=== PATIENT | male | born 1960 | race African-American/Black ===

== ENCOUNTER 2022-10-19 13:38 | Observation (INO) | payer MEDICARE, MEDICAID, SELFPAY ==
[2022-10-19] VITALS (14 sets, daily range): BP systolic 94–134; BP diastolic 63–94; PULSE 61–78; RESP 13–25; TEMP 36.3–36.6; O2SAT 98–100; BMI 28.1
--- NOTE | ~2022-10-19 | US_ITS ---
EXAMINATION: US renal BI DATE: 10/20/2022 11:18 INDICATION: Acute kidney injury. TECHNIQUE: Multiple ultrasound grayscale images of the kidneys were obtained. COMPARISON: None. FINDINGS: The right kidney measures 11.2 x 5.8 x 4.5 cm. The left kidney measures 10.6 x 6.4 x 4.8 cm. The kidn eys demonstrate normal parenchymal echogenicity. There is a 1.4 cm cyst in right kidney. There is no hydronephrosis. The bladder is decompressed. There is diffuse hepatic steatosis. IMPRESSION: 1. Normal kidney sizes. No hydronephrosis. 2. Diffuse hepatic steatosis. Reviewed, dictated and finalized at location A.
--- NOTE | ~2022-10-19 | CT_ITS ---
EXAMINATION: CT brain wo con DATE: 10/19/2022 14:20 INDICATION: Dizziness. Syncope. TECHNIQUE: Computed tomography (CT) of the head was performed without intravenous contrast. The mA wa s adjusted according to patient size. Iterative reconstruction technique was employed. The dose-lengt h product was 605.33 mGy-cm. COMPARISON: None FINDINGS: There is no intracranial hemorrhage, acute infarction, or abnormal intracranial mass lesion . The ventricles are normal in size. There is an old blowout fracture of medial wall of left orbit. T here is mild mucosal thickening in the paranasal sinuses. The mastoid air cells are normal. IMPRESSION: 1. Normal brain. Reviewed, dictated and finalized at location A. IMPRESSION: 1. Normal brain.
--- NOTE | ~2022-10-19 | XR_ITS ---
EXAMINATION: XR chest 1V DATE: 10/19/2022 14:25 INDICATION: Syncope. TECHNIQUE: A single frontal view of the chest was obtained. COMPARISON: None. FINDINGS: The chest demonstrates clear lungs without pneumonia, pleural effusion, or pneumothorax. Th e heart size is normal. IMPRESSION: 1. No acute cardiopulmonary disease. Reviewed, dictated and finalized at location A.
--- NOTE | ~2022-10-19 | US_ITS ---
EXAMINATION: US carotid duplex BI DATE: 10/20/2022 11:18 INDICATION: Syncope. TECHNIQUE: Grayscale, color Doppler, and pulsed Doppler images of the cervical carotid arteries were obtained. The degree of vessel stenosis is placed in one of the following categories: normal, <50%, 5 0-69%, >=70% but less than near-occlusion, near-occlusion, or total occlusion. Note that percent sten osis relative to normal distal artery lumen diameter is indirectly measured from velocity measurement s as described by Patrice, et al. Radiology 2003; 229:340-346. COMPARISON: None. FINDINGS: RIGHT: The right common carotid artery (CCA) peak systolic velocity (PSV) is 86 cm/s. The right internal car otid artery (ICA) PSV is 56 cm/s. The right ICA end-diastolic velocity (EDV) is 23 cm/s. The right IC A/CCA PSV ratio is 0.8. Grayscale and color Doppler images yield an estimate of <50% diameter reducti on from plaque in the ICA. There is antegrade flow in the right vertebral artery. LEFT: The left CCA PSV is 82 cm/s. The left ICA PSV is 60 cm/s. The left ICA EDV is 23 cm/s. The left ICA/C CA PSV ratio is 0.7. Grayscale and color Doppler images yield an estimate of <50% diameter reduction from plaque in the ICA. There is antegrade flow in the left vertebral artery. IMPRESSION: 1. <50% stenosis in the right internal carotid artery. 2. <50% stenosis in the left internal carotid artery. Reviewed, dictated and finalized at location A.
--- NOTE | 2022-10-19 13:50 | ECG_ITS ---
Measurements Intervals [place] Rate: 71 P: 60 PA: 167 QRS: 54 QRSD: 103 T: 43 QT: 363 QTc: 397 Interpretive Statements SINUS RHYTHM ST ELEVATION IN DIFFUSE LEADSCONSISTENT WITH INJURY, PERICARDITIS, OR EARLY REPOLARIZATION ABNORMAL ECG NO PREVIOUS ECG AVAILABLE FOR COMPARISON Electronically Signed On 10-19-2022 14:26:46 CDT by Bonifacio Arora D.O.
--- NOTE | 2022-10-19 14:08 | ED.GENADULT ---
HPI - General Adult General Chief complaint: Syncope Stated complaint: syncope Time Seen by Provider: 10/19/22 14:07 Source: patient Mode of arrival: ambulatory Limitations: no limitations History of Present Illness HPI narrative: 62 years old -[place] male was cutting the grass, felt dizzy, hot, could not breathe, went inside the house to relax then blacked out for unknown duration, later patient was able to relax feeling good, 20 minutes later tried to stand up then blacked out again. Brought to the emergency room by private car with his nephew. Patient reported having 3 shots of vodka which is nothing for him. Currently denying any symptoms including chest pain, shortness of breath, headache or focal neurodeficit. History of hypertension, been going through cardiac evaluation lately for unknown reason discovered while trying to do cataract left eye Related Data Allergies Allergy/AdvReac Type Severity Reaction Status Date / Time No Known Drug Allergies Allergy Unknown Verified 10/19/22 15:40 Review of Systems Review of Systems: All systems reviewed & are unremarkable except as noted in HPI and below Exam Narrative: General appearance: Well-developed, well-nourished Skin: Normal color Head: Normocephalic, nontraumatic Eyes: Clear conjunctiva ENT: Oropharynx normal, ears normal, nose normal Neck: Supple, nontender Chest and respiratory: Airway patent, no respiratory distress, no accessory muscle use Heart: Regular rate/rhythm Abdomen: Soft, nontender, no organomegaly, quiet bowel sounds Vascular: Normal peripheral pulses, normal capillary refill. Musculoskeletal: Normal range of motion, nontender back Neurologic: Alert and oriented ?3, [employer] is normal as tested, no gross motor deficit Course Reevaluation(s) Reevaluation #1: Patient feeling much better, denying any symptoms. Was notified about admission, agreed Date: 10/19/22 Time: 18:42 Vital Signs Vital signs: Vital Signs Temperature 36.3 C L 10/19/22 13:44 Pulse Rate 77 10/19/22 13:44 Respiratory Rate 18 10/19/22 13:44 Blood Pressure 119/85 10/19/22 13:44 Pulse Oximetry 100 10/19/22 13:44 Oxygen Delivery Room Air 10/19/22 13:44 Temperature 36.3 C L 10/19/22 13:44 Pulse Rate 68 10/19/22 18:28 Respiratory Rate 20 10/19/22 18:28 Blood Pressure 106/65 10/19/22 18:28 Pulse Oximetry 100 10/19/22 18:28 Oxygen Delivery Room Air 10/19/22 13:44 Medical Decision Making MDM Narrative Medical decision making narrative: Patient presents with lightheadedness and dizziness and syncope after working hard in the backyard in the hot water midday. Blood pressure on arrival to the ED was in the low level of normal, patient was asymptomatic on arrival to the ED, denies any shortness of breath or chest pain or headache. Differential diagnosis include heat exhaustion, dehydration, electrolyte imbalance, orthostatic hypotension. EKG on arrival showed diffuse ST elevation consistent with pericarditis versus early repolarization, CRP came back within normal limits negative pericarditis less likely. Patient denies any chest pain. Physical examination was unremarkable. Work-up today showed normal CBC, normal coags, elevated creatinine of 1.8, no old records for comparison, dehydration secondary to backyard work today is a possibility. Urine showed insignificant abnormality, toxicology screen showed came back positive for marijuana CT head and chest x-ray showed no acute abnormalities. Patient received 2 L of normal saline in the ED, orthostatic blood pressure showed low normal blood pressure, Patient will be admitted for IV fluid and color television console monitor. Cecile
[2022-10-19 14:12] LABS: Basophils Absolute Auto 0.1 K/mm3 (0.0-0.1); Basophils Percent Auto 0.6 % (0.2-1.2); Eosinophils Absolute Auto 0.1 K/mm3 (0-0.3); Eosinophils Percent Auto 1.3 % (0-4.4); Hemoglobin 13.2 g/dL (14.0-18.0); Immature Granulocyte Absolute 0.08 K/mm3 (0.00-0.031); Immature Granulocyte Percent A 0.9 % (0-0.5); Lymphocytes Absolute Auto 1.69 K/mm3 (0.9-3.2); Mean Corpuscular Hemoglobin 28.9 pg (26-34); Mean Corpuscular Volume 87.7 fl (80-100); Mean Platelet Volume 9.4 fl (7.4-10.4); Monocytes Absolute Auto 0.9 K/mm3 (0.1-0.6); Monocytes Percent Auto 9.9 % (2.6-8.5); Neutrophils Absolute Auto 6.5 K/mm3 (1.3-6.7); Neutrophils Percent Auto 69.3 % (45.5-73.1); Platelet Count Result 307 k/mm3 (150-375); Red Blood Count 4.56 M/mm3 (4.6-6.20); Red Cell Distribution Width 13.7 % (11.5-14.5); White Blood Count 9.4 K/mm3 (4.5-10.0)
[2022-10-19 14:21] LABS: Alanine Aminotransferase 32 U/L (6-50); Albumin Level 4.4 g/dL (3.5-5.1); Alkaline Phosphatase 83 U/L (38-126); Anion Gap 10 mmol/L (8-16); Aspartate Amino Transferase 31 U/L (17-59); Bilirubin,Total 0.6 mg/dL (0.2-1.3); Blood Urea Nitrogen 18 mg/dL (9-20); Calcium 9.6 mg/dL (8.4-10.2); Carbon Dioxide 22 mmol/L (22-30); Chloride 102 mmol/L (98-107); Estimated CRCL calculation 37 ml/min; Estimated Glomerular Filt Rate 39; Glucose 97 mg/dL (65-110); Potassium 3.7 mmol/L (3.4-5.0); Sodium 134 mmol/L (137-145)
[2022-10-19 14:28] LABS: Glucose Point of Care 98 mg/dl (65-105)
[2022-10-19 15:11] LABS: Appearance Urine Clear (Clear); Bacteria Urine None Seen /hpf; Bilirubin Urine Negative (Negative); Blood Urine Negative (Negative); Color Urine Yellow (Yellow); Glucose Urine UA Negative (Negative); Ketones Urine Negative (Negative); Leukocyte Esterase Ur Trace LEU/UL (Negative); Nitrate Urine Negative (Negative); Protein Urine Negative (Negative); RBC Urine 0-2 /hpf (0-2); Specific Grav Ur 1.016 (1.001-1.035); Squamous Epithelial Cell Urine None seen /hpf (Few); Urobilinogen Urine 0.2 mg/dL (<2.0); WBC Urine 0-5 /hpf; pH Urine 5.5 (5.0-9.0)
[2022-10-19 15:13] LABS: Add Urine Microscopic? YES
[2022-10-19 15:17] LABS: CRP < 0.5 mg/dL (<1.0)
[2022-10-19 15:17] LABS: INR 0.9
[2022-10-19 15:18] LABS: Partial Thromboplastin Time 24.2 SECONDS (22.3-36.8)
[2022-10-19 15:26] LABS: Troponin I 0.025 ng/mL (0.000-0.034)
[2022-10-19 15:32] LABS: Erythrocyte Sedimentation Rate 15 mm/hr (0-20)
[2022-10-19 15:40] LABS: Ethanol < 10 mg/dL (<10)
[2022-10-19] MEDS: SODIUM CHLORIDE 0.9% IV 1,000 ML 999 ML IV CONT ×2 (15:41→16:27)
[2022-10-19 15:52] LABS: Amphetamine Screen Urine Negative (Negative); Barbiturate Screen Urine Negative (Negative); Benzodiazepines Screen Urine Negative (Negative); Cannabinoid Screen Urine Positive (Negative); Cocaine Screen Urine Negative (Negative); Methadone Screen Urine Negative (Negative); Opiate Screen Urine Negative (Negative); Phencyclidine Screen Urine Negative (Negative)
[2022-10-19] MEDS: SODIUM CHLORIDE 0.9% IV 1,000 ML 125 ML IV CONT (19:54)
--- NOTE | 2022-10-19 20:18 | ADMGEN ---
This patient, Kiel Mukherjee, was admitted to Medical Room 259-. Patient/family oriented to hospital policies and general routines including ID bracelet, bed and alarms, visiting hours, pain management, procedures, bathroom and other care routines, personal items, smoking policy, room service/diet, and visiting hours. Information on how to activate the Rapid Response Team has been discussed. Patient/Family are encouraged to report perceived risks to care and to ask questions if they do not understand what they are told or what they should do.
[2022-10-20] VITALS (10 sets, daily range): BP systolic 104–139; BP diastolic 63–79; PULSE 54–75; RESP 18–20; TEMP 36.1–36.8; O2SAT 100
--- NOTE | 2022-10-20 | ECHO_ITS ---
Patient Info Name: Kiel Mukherjee Age: 62 years : 1960 Gender: Male Ht: 67 in Wt: 179 lbs BSA: 1.98 m2 HR: 75 bpm BP: 116 / 70 mmHg Heart Rhythm: Sinus Rhythm Technical Quality: Good Exam Date: 10/20/2022 11:21 AM Exam Location: [facility] Patient Status: Outpatient Admit Date: 10/19/2022 Staff Ordering Physician: Peter Elizondo MD Client Solutions Manager: Jane Ruano RDCS Attending Provider: Yolanda Quinones DO Referring Physician: Mikhail HARRIS; Exam Type: CA echo doppler color flow Study Info Indications R55 - Syncope and collapse Complete two-dimensional, color flow and Doppler transthoracic echocardiogram is performed. Summary 1. Complete two-dimensional, color flow and Doppler transthoracic echocardiogram is performed. 2. Left ventricular chamber dimension is normal. 3. Left ventricular systolic function is normal, estimated at 60-65%. 4. There is mildly increased left ventricular wall thickness. 5. The left ventricular diastolic function is normal. 6. Right ventricular chamber dimension is normal. 7. Right ventricular systolic function is normal. 8. There is trace mitral valve regurgitation. 9. There is trace tricuspid valve regurgitation. 10. There is mild pulmonic regurgitation. Left Ventricle Left ventricular chamber dimension is normal. Left ventricular systolic function is normal, estimated at 60-65%. There is mildly increased left ventricular wall thickness. The left ventricular diastolic function is normal. Right Ventricle Right ventricular chamber dimension is normal. Right ventricular systolic function is normal. Left Atria Left atrial chamber dimension is normal. Right Atria Right atrial chamber dimension is normal. Atrial Septum Intact interatrial septum visualized by color flow imaging. Aortic Valve The aortic valve is probable trileaflet. There is mild aortic valve sclerosis. There is no aortic valve stenosis. There is no aortic valve regurgitation. Pulmonic Valve The pulmonic valve is not well visualized. There is mild pulmonic regurgitation. Mitral Valve There is no mitral valve stenosis. There is trace mitral valve regurgitation. Tricuspid Valve There is trace tricuspid valve regurgitation. Pericardium/Pleural The pericardium appears epicardial fat pad. There is no pericardial effusion. Inferior Vena Cava Normal inferior vena cava with >50% collapse upon inspiration consistent with normal right atrial pressure, 3 mmHg. Aorta The aortic root size at the sinus of Valsalva is normal. Left Ventricular Outflow Tract Name Value Normal LVOT 2D LVOT Diameter 2.0 cm LVOT Doppler LVOT Peak Gradient 4 mmHg LVOT Mean Gradient 2 mmHg LVOT VTI 19 cm LVOT VTI/AV VTI Ratio 0.7 LVOT Stroke Volume 58 ml LVOT CO 3.5 l/min LVOT CI 1.8 l/min/m2 Pulmonic Valve Name Value Normal
--- NOTE | 2022-10-20 00:04 | PM.IMHP ---
H&P: HPI History of Present Illness Date/Time: 10/20/22 00:04 Chief Complaint: syncope Narrative: This is a 62-year-old male with past medical history significant for hypertension, dyslipidemia. Patient was brought to emergency room via private vehicle, by family member after patient was mowing the lawn went inside the house and had 2 episodes of syncope while standing this was with no warnings, denies any lightheadedness, no dizziness, no vision changes cough no focal sensorimotor deficit, no headaches, has been in his usual state of health up until this point when the night before went to bed he was his usual, denies fevers, rigors, chills, nausea, vomiting, diarrhea denies any changes of his appetite, no chest pain, no leg swelling no PND no orthopnea no calves pain. patient was noted to have a systolic blood pressure of 90s in the emergency room. preliminary workup was significant for BUN and creatinine 18 and 1.8 respectively a chest x-ray was reported as: EXAMINATION: XR chest 1V DATE: 10/19/2022 14:25 INDICATION: Syncope. TECHNIQUE: A single frontal view of the chest was obtained. COMPARISON: None. FINDINGS: The chest demonstrates clear lungs without pneumonia, pleural effusion, or pneumothorax. The heart size is normal. IMPRESSION: 1. No acute cardiopulmonary disease. A CT of the head was reported as: EXAMINATION: CT brain wo con DATE: 10/19/2022 14:20 INDICATION: Dizziness. Syncope. TECHNIQUE: Computed tomography (CT) of the head was performed without intravenous contrast. The mA was adjusted according to patient size. Iterative reconstruction technique was employed. The dose-length product was 605.33 mGy-cm. COMPARISON: None FINDINGS: There is no intracranial hemorrhage, acute infarction, or abnormal intracranial mass lesion. The ventricles are normal in size. There is an old blowout fracture of medial wall of left orbit. There is mild mucosal thickening in the paranasal sinuses. The mastoid air cells are normal. IMPRESSION: 1. Normal brain. Review of Systems Review of Systems: syncope Constitutional: Constitutional: Denies chills, Denies fatigue, Denies fever(s), Denies frequent falls, Denies lethargy, Denies malaise, Denies night sweats, Denies poor appetite, Denies weakness and Denies weight loss Eyes: Eyes: Denies change in vision ENT: Denies dysphagia, Denies vertigo, Denies dizziness and Denies odynophagia Cardiovascular: Cardiovascular: Denies chest pain, Denies leg edema, Denies lightheadedness, Denies radiating jaw, neck or arm pain, Denies palpitations and Denies dyspnea Respiratory: Respiratory: Denies chest congestion, Denies cough, Denies excessive phlegm production, Denies pain on inspiration, Denies dyspnea on exertion and Denies wheezing Gastrointestinal: Gastrointestinal: Denies abdominal pain, Denies dyspepsia, Denies heartburn, Denies diarrhea, Denies loose stools, Denies nausea and Denies vomiting Genitourinary: Genitourinary: Denies dysuria Musculoskeletal: Musculoskeletal: Denies myalgias, Denies joint swelling and Denies muscle weakness Integumentary/Breasts: Skin/Breast: Denies rash Neurologic: Denies focal weakness and Denies Sensory deficit (Neuro) Psychiatric: Psychiatric: Reports no additional psychiatric complaints and Reports as per HPI Endocrine: Endocrine: Denies cold intolerance, Denies flushing, Denies heat intolerance, Denies polyphagia, Denies polydipsia and Denies palpitations Hematologic/Lymphatic: Hematologic/Lymphatic: Reports no additional hematologic/lymphatic complaints and Reports as per HPI Allergic/Immunologic: Allergic/Immunologic: Reports no additional allergic/immunologic complaints and Reports as per HPI PMFSH Family History Family History (Updated 10/19/22 @ 21:06 by Maddy Dominguez RN) Father No problems noted. Mother Hypertension Depression Social History Social History (Reviewed 10/19/22 @ 18:42 by Jerome
[2022-10-20 00:15] LABS: Troponin I 0.013 ng/mL (0.000-0.034)
[2022-10-20 06:15] LABS: Anion Gap 6 mmol/L (8-16); Blood Urea Nitrogen 20 mg/dL (9-20); Calcium 8.9 mg/dL (8.4-10.2); Carbon Dioxide 24 mmol/L (22-30); Chloride 107 mmol/L (98-107); Estimated CRCL calculation 65 ml/min; Estimated Glomerular Filt Rate > 60; Glucose 94 mg/dL (65-110); Potassium 3.8 mmol/L (3.4-5.0); Sodium 137 mmol/L (137-145)
--- NOTE | 2022-10-20 08:16 | ECG_ITS ---
Measurements Intervals [place] Rate: 50 P: 76 [place]: 197 QRS: 79 QRSD: 104 T: 60 QT: 415 QTc: 381 Interpretive Statements SINUS BRADYCARDIA NONSPECIFIC ST ELEVATION IN DIFFUSE LEADS BORDERLINE ECG COMPARED TO ECG 10/19/2022 14:01:29 SINUS BRADYCARDIA NOW PRESENT Electronically Signed On 10-20-2022 8:43:42 CDT by Bonifacio Arora D.O.
[2022-10-20 08:32] LABS: Basophils Absolute Auto 0.1 K/mm3 (0.0-0.1); Basophils Percent Auto 0.7 % (0.2-1.2); Eosinophils Absolute Auto 0.3 K/mm3 (0-0.3); Eosinophils Percent Auto 3.1 % (0-4.4); Hematocrit 38.3 % (42.0-52.0); Hemoglobin 12.3 g/dL (14.0-18.0); Immature Granulocyte Absolute 0.03 K/mm3 (0.00-0.031); Immature Granulocyte Percent A 0.4 % (0-0.5); Lymphocytes Percent Auto 31.8 % (18.3-44.2); Mean Corpuscular HGB Conc 32.1 g/dl (32-36); Mean Corpuscular Hemoglobin 28.9 pg (26-34); Mean Corpuscular Volume 89.9 fl (80-100); Mean Platelet Volume 10.7 fl (7.4-10.4); Monocytes Percent Auto 12.4 % (2.6-8.5); Neutrophils Absolute Auto 4.2 K/mm3 (1.3-6.7); Neutrophils Percent Auto 51.6 % (45.5-73.1); Platelet Count Result 273 k/mm3 (150-375); Red Blood Count 4.26 M/mm3 (4.6-6.20); White Blood Count 8.2 K/mm3 (4.5-10.0)
[2022-10-20] MEDS: MULTIVITAMINS THERAPEUTIC TAB (*BKC) 1 TABLET PO (08:44)
[2022-10-20] MEDS: amLODIPine BESYLATE 5 MG TABLET 10 MG PO (08:44)
[2022-10-20] MEDS: ATORVASTATIN 20 MG TABLET PO (08:44)
--- NOTE | 2022-10-20 16:16 | PM.DS ---
DS: Admitting Diagnosis Discharge Date 10/20/22 Admitting Diagnosis NAOMI, dehydration, syncope DS: Discharge Diagnosis Discharge Diagnosis (1) Syncope and collapse: Code(s): R55 - Syncope and collapse Status: Acute (2) NAOMI (acute kidney injury): Code(s): N17.9 - Acute kidney failure, unspecified Status: Acute (3) Hypertension: Code(s): I10 - Essential (primary) hypertension Status: Acute (4) Dehydration after exertion: Code(s): E86.0 - Dehydration Status: Acute DS: Summary Hospital Course Hospital Course: This is a 62-year-old male with a past medical history of hypertension and hyperlipidemia the presented to the ED on 10/19/2022 after 2 episodes of syncope. Patient states that he had been cutting the grass and felt hot, dizzy and short of breath during this time. Patient did report having 3 shots of vodka around this time as well. Patient's blood pressure was found to be soft in the ED with positive orthostatics. Patient was given IV fluids and orthostatics and became negative and blood pressure became stable. EKG revealing diffuse ST elevation consistent with pericarditis versus early repolarization. CRP came back within normal limits and patient denies any chest pain leaving pericarditis less likely. Patient's creatinine was found to be 1.8 and typically patient's creatinine is within normal limits. Chest x-ray no acute cardiopulmonary process head CT normal aging brain. Echocardiogram With EF of 60 65%, normal diastolic function, trace valvular disease. Carotid Dopplers with less than 50% stenosis bilaterally. Renal ultrasound normal. Patient feeling back to self and he likely could variants dehydration and or heat exhaustion causing him to have syncopal events. Patient's electrolytes and creatinine in are within normal limits. Patient is medically stable and clear for discharge. Time Spent with Patient Time attestation: Total time spent providing and/or coordinating discharge services: Exam Narrative: GENERAL: Comfortable, no acute distress HENMT: moist mucous membranes EYES: EOM intact b/l, cataracts present NECK: no lymphadenopathy RESPIRATORY: clear to auscultation CARDIO: RRR GI: soft, nontender, bowel sounds present SKIN: no rashes EXTREMITIES: no edema, redness or tenderness DS: Data Data Completed and Pending Labs on day of discharge: Labs from last 24 hours 10/20/22 10/20/22 10/19/22 05:14 05:10 23:41 WBC 8.2 RBC 4.26 L Hgb 12.3 L Hct 38.3 L MCV 89.9 MCH 28.9 MCHC 32.1 RDW 14.0 Plt Count 273 MPV 10.7 H Immature Gran % (Auto) 0.4 Neut % (Auto) 51.6 Lymph % (Auto) 31.8 [place] % (Auto) 12.4 H Eos % (Auto) 3.1 Baso % (Auto) 0.7 Lymph # (Auto) 2.60 [place] # (Auto) 1.0 H Eos # (Auto) 0.3 Baso # (Auto) 0.1 Abs Immat Gran (auto) 0.03 Absolute Neuts (auto) 4.2 Absolute Nucleated RBC 0.0 Nucleated RBC % 0.0 Sodium 137 Potassium 3.8 Chloride 107 Carbon Dioxide 24 Anion Gap 6 L BUN 20 Creatinine 1.00 Estim Creat Clear Calc 65 Estimated GFR > 60 Glucose 94 Calcium 8.9 Troponin I 0.013 Discharge Plan Discharge Attending physician on discharge: Kristopher Dejesus Discharging Clinician: Maureen Guerrero Patient Disposition: Home, Self-Care Activity: as tolerated Diet: regular Discharge Instructions: When to seek care: You sudden chest pain You have trouble breathing or shortness of breath He has vision changes or sweating Given nausea while your leg or sitting If you will flush in your heart is fluttering You faint Prevention: Stand up slowly Sit on side of the bed or couch for a few minutes before you stand up Take slow deep breaths when you feel lightheaded Discharge disposition: Take medications as prescribed Remain well hydrated Monitor blood pressures Avoid social areas, you wear
== END 2022-10-20 17:10 | disposition home or self-care (01) ==
LOC: ANHED 18:37 → ANH2MED 20:16
PROVIDERS: Family Medicine; Admitting Provider Student in an Organized Health Care Education/Training Program; Emergency Provider Emergency Medicine; Visit Provider Internal Medicine Critical Care Medicine
DX: R55 Syncope and collapse (principal); N17.9 Acute kidney failure, unspecified; I10 Essential (primary) hypertension; E86.0 Dehydration; K76.0 Fatty (change of) liver, not elsewhere classified; R00.1 Bradycardia, unspecified; R94.31 Abnormal electrocardiogram [ECG] [EKG]; I37.1 Nonrheumatic pulmonary valve insufficiency; E78.5 Hyperlipidemia, unspecified; F17.210 Nicotine dependence, cigarettes, uncomplicated; F10.90 Alcohol use, unspecified, uncomplicated; Y90.0 Blood alcohol level of less than 20 mg/100 ml; F12.90 Cannabis use, unspecified, uncomplicated; Z79.51 Long term (current) use of inhaled steroids; Z79.899 Other long term (current) drug therapy
CPT/HCPCS: 36415; 70450; 71045; 76775; 80048; 80053; 80307; 81001; 82948; 84484; 85025; 85610; 85652; 85730; 86140; 93005; 93306; 93880; 96360; 96361; 99285; A9270; G0378; J7030

== ENCOUNTER 2022-11-26 11:13 | Day surgery (SDC) | payer MEDICARE, MEDICAID, SELFPAY ==
[2022-11-26] VITALS (12 sets, daily range): BP systolic 148–190; BP diastolic 83–114; PULSE 59–87; RESP 14–23; TEMP 36.5–37.1; O2SAT 96–100; BMI 28.1
--- NOTE | ~2022-11-26 | US_ITS ---
EXAMINATION: US abdomen limited DATE: 11/26/2022 13:28 INDICATION: Right upper quadrant pain TECHNIQUE: Multiple grayscale and Doppler ultrasound images of the abdomen were obtained. COMPARISON: CT from today FINDINGS: The head and body of the pancreas are normal. The pancreatic tail is obscured by bowel gas. The liver is normal with normal echogenicity and echotexture. No surface nodularity. Normal hepatope robles flow in the main portal vein. There are multiple stones in the nondistended gallbladder. There is wall thickening of the gallbladder. The normal common bile duct measures 5 mm. There was no sonograp hic Hernandez sign although sensitivity is limited by pain medication. IMPRESSION: 1. Cholelithiasis and gallbladder wall thickening. Findings are consistent with cholecystitis. Reviewed, dictated and finalized at location B.
--- NOTE | ~2022-11-26 | CT_ITS ---
EXAMINATION: CT abdomen pelvis w con INDICATION: Right-sided abdominal pain TECHNIQUE: Computed tomographic images of the abdomen and pelvis were obtained after the administrati on of 100 cc of Omnipaque 350 intravenous contrast. The dose-length product (DLP) was 565.40 mGy-cm. Automated exposure control and iterative reconstruction technique were employed. COMPARISON: None available FINDINGS: Minimal dependent atelectasis is present in the lung bases. The heart size is normal. The l iver, spleen, pancreas, and adrenal glands are normal. There appears to be mild wall thickening of th e gallbladder. There is a 2 cm cyst of the right kidney. The left kidney is unremarkable. No patholog ically enlarged abdominal or pelvic lymph nodes are identified. No free intraperitoneal gas or eviden ce of bowel obstruction. There is circumferential wall thickening of the urinary bladder. There are u mbilical and bilateral inguinal hernias containing fat. The appendix is normal. There is mild lumbar spondylosis. IMPRESSION: 1. Gallbladder wall thickening which could reflect cholecystitis. Consider further evaluation with ul trasound and/or nuclear hepatobiliary scan. 2. Mild wall thickening of the urinary bladder which could reflect chronic outlet obstruction, incomp lete distention, or cystitis. Reviewed, dictated and finalized at location B. IMPRESSION: 1. Gallbladder wall thickening which could reflect cholecystitis. Consider furt her evaluation with ultrasound and/or nuclear hepatobiliary scan. 2. Mild wall thickening of the urinary bladder which could reflect chronic outl et obstruction, incomplete distention, or cystitis.
[2022-11-26 11:41] LABS: Basophils Percent Auto 0.4 % (0.2-1.2); Eosinophils Percent Auto 0.1 % (0-4.4); Hemoglobin 14.3 g/dL (14.0-18.0); Immature Granulocyte Absolute 0.05 K/mm3 (0.00-0.031); Immature Granulocyte Percent A 0.5 % (0-0.5); Lymphocytes Absolute Auto 1.08 K/mm3 (0.9-3.2); Mean Corpuscular HGB Conc 33.3 g/dl (32-36); Mean Corpuscular Hemoglobin 28.8 pg (26-34); Mean Corpuscular Volume 86.5 fl (80-100); Monocytes Absolute Auto 0.6 K/mm3 (0.1-0.6); Monocytes Percent Auto 6.5 % (2.6-8.5); Neutrophils Percent Auto 81.5 % (45.5-73.1); Platelet Count Result 321 k/mm3 (150-375); Red Blood Count 4.97 M/mm3 (4.6-6.20); White Blood Count 9.8 K/mm3 (4.5-10.0)
[2022-11-26 11:55] LABS: Alanine Aminotransferase 31 U/L (6-50); Alkaline Phosphatase 102 U/L (38-126); Anion Gap 12 mmol/L (8-16); Aspartate Amino Transferase 32 U/L (17-59); Bilirubin,Total 0.7 mg/dL (0.2-1.3); Blood Urea Nitrogen 18 mg/dL (9-20); Calcium 10.5 mg/dL (8.4-10.2); Carbon Dioxide 20 mmol/L (22-30); Chloride 107 mmol/L (98-107); Estimated CRCL calculation 72 ml/min; Estimated Glomerular Filt Rate > 60; Glucose 138 mg/dL (65-110); Lipase 85 U/L (23-300); Potassium 3.5 mmol/L (3.4-5.0); Sodium 139 mmol/L (137-145)
[2022-11-26 12:27] LABS: Appearance Urine Clear (Clear); Bacteria Urine None Seen /hpf; Bilirubin Urine Negative (Negative); Blood Urine 2+ (Negative); Color Urine Yellow (Yellow); Glucose Urine UA Negative (Negative); Ketones Urine 2+ mg/dL (Negative); Leukocyte Esterase Ur Trace LEU/UL (Negative); Nitrate Urine Negative (Negative); Non Pathogenic Casts 0-2; Protein Urine 2+ mg/dL (Negative); Specific Grav Ur 1.027 (1.001-1.035); Squamous Epithelial Cell Urine None seen /hpf (Few); WBC Urine 0-5 /hpf; pH Urine 6.5 (5.0-9.0)
[2022-11-26 12:28] LABS: Add Urine Microscopic? YES
[2022-11-26] MEDS: SODIUM CHLORIDE 0.9% IV 1,000 ML 999 ML IV CONT (12:31)
[2022-11-26] MEDS: ONDANSETRON INJ 4 MG/2 ML VIAL IV PUSH (12:31)
[2022-11-26] MEDS: MORPHINE SULFATE (*CRX) 4 MG/ML INJ IV PUSH (12:35)
--- NOTE | 2022-11-26 12:44 | PC.NURSE ---
Pt with approximately 600ml bilious emesis. Pt medication per JUL.
--- NOTE | 2022-11-26 13:57 | ED.ABDPAIN ---
HPI - Abdominal Pain General Chief Complaint: Abdominal Pain <JACOB Quigley Last Filed: 11/26/22 19:54> Stated Complaint: abdominal pain/dizziness post eating x1 day <JACOB Quigley Last Filed: 11/26/22 19:54> Time Seen by Provider: 11/26/22 11:42 <JACOB Quigley Last Filed: 11/26/22 19:54> Source: patient <JACOB Quigley Last Filed: 11/26/22 19:54> Mode of arrival: ambulatory <JACOB Quigley Last Filed: 11/26/22 19:54> Limitations: no limitations <JACOB Quigley Last Filed: 11/26/22 19:54> History of Present Illness HPI narrative: Patient is a 62-year-old male who presents to the ED with report of abdominal pain. Patient reports he ate a burrito that had been sitting out for a prolonged period yesterday afternoon. He thought it may have been spoiled. He developed pain in his upper abdomen afterwards. Pain has been constant since then, worse with sitting still. He is pacing across the ED room. He has since developed nausea and vomiting. He does note he made himself vomit at one time, which made his pain feel slightly better. He also tried taking Tums and [place] for the pain without relief. Denies any diarrhea, constipation, bleeding, melena, fevers. <JACOB Quigley Last Filed: 11/26/22 19:54> Related Data Home Medications: Home Medications Medication Instructions Recorded Confirmed Adult One Daily Multivitamin 1 tab-cap PO DAILY 10/19/22 10/19/22 albuterol sulfate 90 mcg/actuation 2 puff inhalation Q6H PRN 10/19/22 10/19/22 aerosol inhaler Shortness Of Breath amlodipine 10 mg tablet 10 mg PO DAILY 10/19/22 10/19/22 atorvastatin 20 mg tablet 20 mg PO DAILY 10/19/22 10/19/22 lisinopril 20 1 tablet PO DAILY 10/19/22 10/19/22 mg-hydrochlorothiazide 12.5 mg tablet <Angely Mckeon PA-C - Last Filed: 11/26/22 19:54> Allergies/Adverse Reactions: Allergies Allergy/AdvReac Type Severity Reaction Status Date / Time No Known Drug Allergies Allergy Unknown Verified 10/19/22 15:40 <Angely Mckeon PA-C - Last Filed: 11/26/22 19:54> Review of Systems Review of Systems: CONSTITUTIONAL: Denies fever, chills, or sweats. CARDIOVASCULAR: Denies chest pain. RESPIRATORY: Denies dyspnea. GASTROINTESTINAL: See HPI. GENITOURINARY: Denies dysuria or hematuria. SKIN: Denies rash or itching. MUSCULOSKELETAL: Denies back pain, joint pain, or myalgia. <Angely Mckeon PA-C - Last Filed: 11/26/22 19:54> All systems reviewed & are unremarkable except as noted in HPI and below <Angely Mckeon PA-C - Last Filed: 11/26/22 19:54> [facility] Past Medical History Medical History: Medical History (Updated 11/26/22 @ 14:11 by Angely Mckeon PA-C) Asthma HLD (hyperlipidemia) Hypertension <Angely Mckeon PA-C - Last Filed: 11/26/22 19:54> Surgical History Surgical History: Surgical History No pertinent past surgical history <Angely Mckeon PA-C - Last Filed: 11/26/22 19:54> Family History Family History: Family History (Updated 10/19/22 @ 21:06 by Maddy Dominguez RN) Father No problems noted. Mother Hypertension Depression <Angely Mckeon PA-C - Last Filed: 11/26/22 19:54> Social History Social History: Social History Years smoked: 46 Smoking status: Current every day smoker Tobacco type: cigarettes Alcohol intake: current Drinks per week: 7 Substance use: current Substance use type: marijuana Lack of Transportation: No Lack of Food: Never True Current Housing: I Have Housing Concerned About Future Housing: No Difficulty Paying Gas/Electric Bills: No Difficulty Paying for Meds: No Currently Unemployed: No Education: High School Di
--- NOTE | 2022-11-26 15:01 | WPDANESEPPF ---
Anes - Initial Pre Proc Eval Procedure: Operation Date: 11/26/22 16:00 Proposed Procedures p Laparoscopic Cholecystectomy - Antwon Naik DO Date/Time: 11/26/22 15:01 Pre Op Diagnosis: abdominal pain/dizziness post eating x1 day Patient Data Age: 62 Gender: M Height: 1.7 m Weight: 81.65 kg Last Vital Signs Temp 37.0 C 11/26/22 11:18 Pulse 59 L 11/26/22 13:24 Resp 16 11/26/22 13:24 BP 149/92 H 11/26/22 13:24 Pulse Ox 100 11/26/22 13:24 O2 Del Method Room Air 11/26/22 11:18 Allergies Allergy/AdvReac Type Severity Reaction Status Date / Time No Known Drug Allergies Allergy Unknown Verified 10/19/22 15:40 Home Medications Medication Instructions Recorded Confirmed Type Adult One Daily Multivitamin 1 tab-cap PO DAILY 10/19/22 10/19/22 History albuterol sulfate 90 mcg/actuation 2 puff inhalation Q6H PRN 10/19/22 10/19/22 History aerosol inhaler Shortness Of Breath amlodipine 10 mg tablet 10 mg PO DAILY 10/19/22 10/19/22 History atorvastatin 20 mg tablet 20 mg PO DAILY 10/19/22 10/19/22 History lisinopril 20 1 tablet PO DAILY 10/19/22 10/19/22 History mg-hydrochlorothiazide 12.5 mg tablet Laboratory Tests 11/26/22 11/26/22 11:30 12:18 WBC 9.8 K/mm3 (4.5-10.0) RBC 4.97 M/mm3 (4.6-6.20) Hgb 14.3 g/dL (14.0-18.0) Hct 43.0 % (42.0-52.0) MCV 86.5 fl (80-100) MCH 28.8 pg (26-34) MCHC 33.3 g/dl (32-36) RDW 14.0 % (11.5-14.5) Plt Count 321 k/mm3 (150-375) MPV 10.0 fl (7.4-10.4) Immature Gran % (Auto) 0.5 % (0-0.5) Neut % (Auto) 81.5 H % (45.5-73.1) Lymph % (Auto) 11.0 L % (18.3-44.2) Will % (Auto) 6.5 % (2.6-8.5) Eos % (Auto) 0.1 % (0-4.4) Baso % (Auto) 0.4 % (0.2-1.2) Lymph # (Auto) 1.08 K/mm3 (0.9-3.2) Will # (Auto) 0.6 K/mm3 (0.1-0.6) Eos # (Auto) 0.0 K/mm3 (0-0.3) Baso # (Auto) 0.0 K/mm3 (0.0-0.1) Abs Immat Gran (auto) 0.05 H K/mm3 (0.00-0.031) Absolute Neuts (auto) 8.0 H K/mm3 (1.3-6.7) Absolute Nucleated RBC 0.0 K/mm3 (0.0-0.012) Nucleated RBC % 0.0 % (0.0-0.2) Sodium 139 mmol/L (137-145) Potassium 3.5 mmol/L (3.4-5.0) Chloride 107 mmol/L (98-107) Carbon Dioxide 20 L mmol/L (22-30) Anion Gap 12 mmol/L (8-16) BUN 18 mg/dL (9-20) Creatinine 0.90 mg/dL (0.7-1.3) Estim Creat Clear Calc 72 ml/min Estimated GFR > 60 (59 - ) Glucose 138 H mg/dL (65-110) Calcium 10.5 H mg/dL (8.4-10.2) Total Bilirubin 0.7 mg/dL (0.2-1.3) AST 32 U/L (17-59) ALT 31 U/L (6-50) Alkaline Phosphatase 102 U/L (38-126) Total Protein 9.0 H g/dL (6.3-8.2) Albumin 5.0 g/dL (3.5-5.1) Lipase 85 U/L (23-300) Urine Color Yellow (Yellow) Urine Appearance Clear (Clear) Urine pH 6.5 (5.0-9.0) Ur Specific [place] 1.027 (1.001-1.035) Urine Protein 2+ H mg/dL (Negative) Urine Glucose (UA) Negative mg/dL (Negative) Urine Ketones 2+ H mg/dL (Negative) Ur Blood (Man) 2+ H (Negative) Urine Nitrate Negative (Negative) Urine Bilirubin Negative (Negative) Urine Urobilinogen 1.0 mg/dL (<2.0) Leukocyte Esterase Rfl Trace H VAUGHN/UL (Negative) Urine RBC 11-20 H /hpf (0-2) Urine WBC 0-5 /hpf Ur Squamous Epith Cells None seen /hpf (Few) Urine Bacteria None seen /hpf Urine Casts 0-2 Patient hx anesthesia problems: none Family hx anesthesia problems: none Results Review: All pre-operative results and documents have been reviewed as part of the pre-operative evaluation. [facility] Past Medical History Medical History (Updated 11/26/22 @ 14:11 by Angely Mckeon PA-C) Asthma HLD (hype
[2022-11-26] MEDS: PIPERACILLN/TAZ 3.375GM/NS50ML 3.375 GM/50 ML BAG IVPB ×2 (15:02→15:57)
--- NOTE | 2022-11-26 15:13 | PC.NURSE ---
Antibiotic and fluids hung. Pt changed into gown for OR. Pt taken to pre-op by surgical staff.
--- NOTE | 2022-11-26 15:15 | WPDHPUPDATE1 ---
History and Physical Update Update Date/Time: 11/26/22 15:15 History and Physical has been reviewed, including an updated exam of the patient. There are NO changes in the patient's condition. Risks, benefits, and alternatives have been discussed and questions answered. Patient agrees to proceed with procedure.
--- NOTE | 2022-11-26 15:15 | PM.IMHP ---
H&P: HPI History of Present Illness Date/Time: 11/26/22 15:15 Chief Complaint: Right upper quadrant pain Narrative: This is a 62-year-old man who presented to the emergency department today with right upper quadrant pain that started yesterday after eating a burrito. He has had constant pain ever since. He never had any symptoms like this before. In the emergency department he was noted to have normal white blood count and liver enzymes. A CT of his abdomen and pelvis was performed which showed evidence of gallbladder wall thickening. Ultrasound was also done and this confirmed cholelithiasis with multiple gallstones and gallbladder wall thickening consistent with cholecystitis. Review of Systems Review of Systems: All systems reviewed & are unremarkable except as noted in HPI and below Constitutional: Constitutional: Denies chills and Denies fever(s) Eyes: Eyes: Denies change in vision ENT: Denies hearing loss, Denies neck pain and Denies sore throat Cardiovascular: Cardiovascular: Denies chest pain and Denies dyspnea Respiratory: Respiratory: Denies cough, Denies dyspnea and Denies wheezing Genitourinary: Genitourinary: Denies hematuria and Denies dysuria Musculoskeletal: Musculoskeletal: Denies arthralgias, Denies joint swelling and Denies neck pain Allergic/Immunologic: Allergic/Immunologic: Denies wheezing [facility] Past Medical History Medical History (Updated 11/26/22 @ 14:11 by Angely Mckeon PA-C) Asthma HLD (hyperlipidemia) Hypertension Surgical History Surgical History (Updated 11/26/22 @ 15:19 by Antwon Naik DO) No pertinent past surgical history Family History Family History (Updated 10/19/22 @ 21:06 by Maddy Dominguez RN) Father No problems noted. Mother Hypertension Depression Social History Social History Years smoked: 46 Smoking status: Current every day smoker Tobacco type: cigarettes Alcohol intake: current Drinks per week: 7 Substance use: current Substance use type: marijuana Lack of Transportation: No Lack of Food: Never True Current Housing: I Have Housing Concerned About Future Housing: No Difficulty Paying Gas/Electric Bills: No Difficulty Paying for Meds: No Currently Unemployed: No Education: High School Diploma/GED Difficulty w/ Childcare or Family Care: No Spiritual care concerns: No Meds Home Medications and Allergies Home Medications Medication Instructions Recorded Confirmed Type Adult One Daily Multivitamin 1 tab-cap PO DAILY 10/19/22 10/19/22 History albuterol sulfate 90 mcg/actuation 2 puff inhalation Q6H PRN 10/19/22 10/19/22 History aerosol inhaler Shortness Of Breath amlodipine 10 mg tablet 10 mg PO DAILY 10/19/22 10/19/22 History atorvastatin 20 mg tablet 20 mg PO DAILY 10/19/22 10/19/22 History lisinopril 20 1 tablet PO DAILY 10/19/22 10/19/22 History mg-hydrochlorothiazide 12.5 mg tablet Allergies Allergy/AdvReac Type Severity Reaction Status Date / Time No Known Drug Allergies Allergy Unknown Verified 10/19/22 15:40 Vital Signs Vital Signs - 24 hr 11/26/22 11:18 11/26/22 13:24 11/26/22 12:40 Temperature 37.0 C Pulse Rate 71 59 L 61 Respiratory Rate 19 16 20 Blood Pressure 152/114 H 149/92 H 190/90 H Pulse Oximetry 100 100 99 Oxygen Delivery Room Air 11/26/22 15:00 Temperature Pulse Rate 68 Respiratory Rate 15 Blood Pressure 148/94 H Pulse Oximetry 100 Oxygen Delivery Exam Const: General: alert; No acute distress Orientation/consciousness: patient oriented x3 Limitations: no limitations HENMT: Head: normocephalic and atraumatic Ears: hearing grossly normal bilaterally Face/Nose/Sinus: Normal external nose present and Normal nares present Mouth: Yes Normal oral and palatal mucosa present and Yes moist mucous membranes Eyes: General: appearance normal, both eyes and all rela
[2022-11-26] MEDS: LACTATED RINGERS 1,000 ML 30 ML IV CONT ×2 (15:33→17:12)
--- NOTE | 2022-11-26 16:21 | W.PM.PROC2 ---
Procedure Note - Detailed Date of Procedure 11/26/22 Pre-op Diagnosis Acute calculous cholecystitis Post-op Diagnosis Same Procedure Performed Laparoscopic Cholecystectomy Surgeon Antwon Naik, DO Anesthesia General and Local (0.5% bupivacaine) Indications This is a 62-year-old man who presented to the emergency department today with right upper quadrant pain that started yesterday. He had eaten a burrito and shortly after this he had begun having constant right upper quadrant pain. He has never had any symptoms like this before. He was experiencing nausea vomiting along with it. In the emergency department he was noted to have an elevated white blood count and CT showed evidence of acute cholecystitis. Ultrasound showed evidence cholelithiasis and cholecystitis. Discussions were made with the patient about treatment options and decision was made to proceed with urgent laparoscopic cholecystectomy, possible open. Findings Laparoscopic cholecystectomy was performed. The gallbladder appeared to have wall thickening and edema consistent with acute cholecystitis. There were several gallstones within the gallbladder. The cystic duct appeared normal in size. The gallbladder was removed and sent to lab for pathology. No other significant abdominal abnormalities noted. Description of Procedure Procedure as well as risks, benefits, and alternatives were discussed with patient. Written consent was obtained and placed in chart prior to procedure. The patient was brought back to surgical suite. Patient was placed in supine position on operating table. Time-out was done to confirm patient and procedure. Patient was then intubated by the anesthesia department. Abdomen was prepped and draped in sterile fashion using chlorhexidine prep. 0.5% bupivacaine with epinephrine was infiltrated at each site of incision. A 5 millimeter incision was made near the umbilicus, and a 5 millimeter Optiview trocar was advanced through the abdominal layers under direct visualization. Once inside the abdominal cavity, carbon dioxide was insufflated to create a pneumoperitoneum. The camera was inserted and the abdomen was inspected. No immediate abnormalities were identified. The patient was placed in reverse Trendelenburg position and rotated slightly to the left. An 11 millimeter incision was made in the subxiphoid region, and an 11 millimeter trocar was inserted under direct visualization. Two 5 millimeter incisions were made in the right upper quadrant, and two 5 millimeter trocars were inserted under direct visualization. The gallbladder was identified and grasped at the fundus and retracted superiorly. It was then grasped at the infundibulum retracted laterally. Careful dissection around the neck of the gallbladder was performed using blunt dissection with a [place] grasper and hook electrocautery. The cystic duct was identified, and a window was created behind it. The cystic artery was also identified and a window was created behind it. The critical view of safety was identified, visualizing the cystic duct running directly into the neck of the gallbladder, and the cystic artery running directly into the wall of the gallbladder. A 5 millimeter clip healthcare financial analyst was then used to place 2 clips proximally and 1 clip distally on both the cystic duct and cystic artery. They were then both transected using endoscopic scissors. Once safely away from the john hepatitis, the gallbladder was dissected free from the liver bed using hook electrocautery. Hemostasis was achieved along the way. The gallbladder was removed completely and then removed through the subxiphoid port. The liver bed was then inspected. Hemostasis appeared adequate, and our clips appeared secure. The area was gently irrigated with sterile saline. No other abnormalities were seen. The patient was flattened out in bed, and 1 final inspection was made around the abdominal cavity. The subxiphoid port was remov
[2022-11-26] MEDS: fentaNYL CITRATE INJ (*CRX) 100 MCG/2 ML VIAL 25 MCG IV PUSH (17:03)
--- NOTE | 2022-11-26 18:22 | SUR.PHASEII ---
1810 - pt Marimar score 10. Pt. states no pain or nausea and feels ready to discharge home. VS Stable. Pt. is awaiting on ride home from nephew to discharge.
== END 2022-11-26 18:28 | disposition home or self-care (01) ==
LOC: ANHED 15:18 → ANHSURGERY 15:18
PROVIDERS: Emergency Medicine; Emergency Provider Physician Assistant; Visit Provider Surgery
PROC: 0FT44ZZ Resection of Gallbladder, Percutaneous Endoscopic Approach (ICD-10-PCS; CPT 47562; principal; 2022-11-26 16:00)
DX: K80.00 Calculus of gallbladder with acute cholecystitis without obstruction (principal); E86.0 Dehydration; I10 Essential (primary) hypertension; E78.5 Hyperlipidemia, unspecified; J45.909 Unspecified asthma, uncomplicated; F17.210 Nicotine dependence, cigarettes, uncomplicated; F12.90 Cannabis use, unspecified, uncomplicated; Z79.51 Long term (current) use of inhaled steroids
CPT/HCPCS: 47562; 36415; 74177; 76705; 80053; 81001; 83690; 85025; 88304; 96374; 96375; 99285; J0330; J1100; J2250; J2270; J2405; J2543; J2704; J3010; J7030; J7120; Q9967